=== PATIENT | male | born 1985 | race African-American/Black ===

== ENCOUNTER 2022-01-27 19:10 | Emergency (ER) | payer SELFPAY ==
[~2022-01-27] VITALS: Ht 167.6 cm; Wt 70.5 kg
[2022-01-27 19:13] VITALS: BP 119/65
[2022-01-27] MEDS ORDERED: PERTUSS(ACELL),DIPH,TET VAC/PF 0.5 ML SYRINGE IM. ONE (19:45)
== END 2022-01-27 20:25 | disposition home or self-care (01) ==
LOC: EMS 19:13
DX: S61.212A Laceration without foreign body of right middle finger without damage to nail, initial encounter (principal); S61.211A Laceration without foreign body of left index finger without damage to nail, initial encounter; W23.2XXA Caught, crushed, jammed or pinched between a moving and stationary object, initial encounter; Y93.89 Activity, other specified; Y92.89 Other specified places as the place of occurrence of the external cause; Y99.8 Other external cause status
CPT/HCPCS: 90471; 90715; 99283